=== PATIENT | female | born 1945 | race Native Hawaiian/Other Pacific Islander ===

== ENCOUNTER 2016-04-25 07:46 | Outpatient (CLI) | payer OTHER ==
[~2016-04-25 07:46] MED LIST: AMLO2.5T PO; ANORO ELLIPTA 61 AER IN; D32000 UNIT PO; DOCU100C10 PO; FIORICET/CODEIN1 CAP PO; METOCLOPRAM10 MG PO; OMEPRAZOLE20 M2 OR; OXYB5TAB64 PO; PRINIVIL10 MG PO; SIMV20TA2 PO; ZANTAC 75 PO
[2016-04-25 09:10] LABS: PLATELET COUNT 247 K/uL (152-353)
== END 2016-04-25 23:35 | disposition home or self-care (01) ==
LOC: LABW 07:46
PROVIDERS: Nurse Practitioner
DX: I10 Essential (primary) hypertension (principal); E78.4 Other hyperlipidemia
CPT/HCPCS: 36415; 80053; 80061; 82043; 82570; 85027

== ENCOUNTER 2016-07-10 08:01 | Outpatient (CLI) | payer OTHER ==
[2016-07-10 08:31] LABS: PLATELET COUNT 314 K/uL (152-353)
[2016-07-10 08:45] LABS: POTASSIUM 4.6 mmol/L (3.6-5.2)
== END 2016-07-10 19:04 | disposition home or self-care (01) ==
LOC: LABW 08:01
PROVIDERS: Internal Medicine Nephrology
DX: I12.9 Hypertensive chronic kidney disease with stage 1 through stage 4 chronic kidney disease, or unspecified chronic kidney disease (principal); N18.3 Chronic kidney disease, stage 3 (moderate); E55.9 Vitamin D deficiency, unspecified
CPT/HCPCS: 36415; 80053; 81000; 82306; 82570; 83970; 84100; 84155; 85027

== ENCOUNTER 2016-07-14 01:06 | Emergency (ER) | payer OTHER ==
[~2016-07-14] VITALS: Ht 170.2 cm; Wt 78.9 kg
[2016-07-14 01:10] VITALS: TEMP 99.9
[2016-07-14 02:33] LABS: PLATELET COUNT 282 K/uL (152-353)
[2016-07-14 02:38] LABS: POTASSIUM 4.2 mmol/L (3.6-5.2)
[2016-07-14 03:03] LABS: PARTIAL THROMBOPLASTIN TIME 20.9 SECONDS (24.5-33.6)
[2016-07-14 03:50] VITALS: BP 142/76
== END 2016-07-14 03:50 | disposition home or self-care (01) ==
LOC: ED 01:06
PROVIDERS: Emergency Medicine
DX: R09.1 Pleurisy (principal); I45.81 Long QT syndrome
CPT/HCPCS: 36415; 80053; 82550; 83880; 84484; 85027; 85610; 85730; 93005; 96374; 96375; 99284; J2270; J2405

== ENCOUNTER 2016-07-16 03:15 | Inpatient (IN) | payer OTHER ==
[~2016-07-16] VITALS: Ht 170.2 cm; Wt 77.4 kg
[2016-07-16 03:16] VITALS: BP 148/67; TEMP 98.7
[2016-07-16 03:45] LABS: PLATELET COUNT 225 K/uL (152-353)
[2016-07-16 06:24] VITALS: BP 99/50; TEMP 99.1; Ht 170.2 cm; Wt 77.4 kg
[2016-07-16 08:00] VITALS: BP 101/55; TEMP 98.1
[2016-07-16 08:37] LABS: POTASSIUM 4.3 mmol/L (3.6-5.2)
[2016-07-16 12:00] VITALS: BP 99/53; TEMP 98.3
[2016-07-16 16:00] VITALS: BP 120/60; TEMP 98.2
[2016-07-16 20:00] VITALS: BP 106/40; TEMP 98.6
[2016-07-17] VITALS: BP 98/42; TEMP 98.7
[2016-07-17 04:00] VITALS: BP 133/75; TEMP 97.9
[2016-07-17 08:00] VITALS: BP 118/54; TEMP 97.6
[2016-07-17 10:31] LABS: PLATELET COUNT 256 K/uL (152-353)
[2016-07-17 11:02] LABS: POTASSIUM 3.1 mmol/L (3.6-5.2)
[2016-07-17 12:00] VITALS: BP 119/55; TEMP 98.5
[2016-07-17 16:00] VITALS: BP 123/93; TEMP 98.6
[2016-07-17 20:00] VITALS: BP 115/61; TEMP 98.7
[2016-07-18] VITALS: BP 117/46; TEMP 98.6
[2016-07-18 04:00] VITALS: BP 110/42; TEMP 99.2
[2016-07-18 06:56] LABS: PLATELET COUNT 290 K/uL (152-353)
[2016-07-18 07:13] LABS: POTASSIUM 3.7 mmol/L (3.6-5.2)
[2016-07-18 08:00] VITALS: BP 131/87; TEMP 98.3
[2016-07-18 12:00] VITALS: BP 129/82; TEMP 98.4
[2016-07-18 17:08] VITALS: BP 138/56; TEMP 98.3
[2016-07-18 20:00] VITALS: BP 131/55; TEMP 98.2
[2016-07-19] VITALS: BP 133/50; TEMP 98.8
[2016-07-19 04:00] VITALS: BP 135/57; TEMP 98
[2016-07-19 04:08] LABS: PLATELET COUNT 259 K/uL (152-353)
[2016-07-19 04:38] LABS: POTASSIUM 3.8 mmol/L (3.6-5.2)
[2016-07-19 08:00] VITALS: BP 152/64; TEMP 98.6
[2016-07-19 12:00] VITALS: BP 148/58; TEMP 98.4
[2016-07-19 16:03] VITALS: BP 167/73; TEMP 97.7
== END 2016-07-19 18:05 | disposition home or self-care (01) | DRG 190 ==
LOC: ED 03:15 → MED/SURG 04:30
PROVIDERS: Emergency Medicine; ADMIT Family Medicine
DX: J44.0 Chronic obstructive pulmonary disease with (acute) lower respiratory infection (principal); J18.8 Other pneumonia, unspecified organism; J20.9 Acute bronchitis, unspecified; J44.1 Chronic obstructive pulmonary disease with (acute) exacerbation; I10 Essential (primary) hypertension; I12.9 Hypertensive chronic kidney disease with stage 1 through stage 4 chronic kidney disease, or unspecified chronic kidney disease; N18.3 Chronic kidney disease, stage 3 (moderate); M54.89 Other dorsalgia; R09.1 Pleurisy; I45.81 Long QT syndrome
CPT/HCPCS: 36415; 80053; 82550; 83735; 83880; 84484; 85027; 85610; 85730; 87040; 87070; 87077; 87205; 93005; 94640; 94664; 94668; 94760; 96361; 96365; 96374; 96375; 96376; 99284; J0696; J2270; J2405; J2920; J2930

== ENCOUNTER 2016-08-02 13:52 | Outpatient (CLI) | payer OTHER | END 2016-08-02 15:00 | disposition home or self-care (01) | LOC: CT 13:52 | DX: J01.01 Acute recurrent maxillary sinusitis (principal); Z87.891 Personal history of nicotine dependence ==

== ENCOUNTER 2016-08-08 07:37 | Outpatient (CLI) | payer OTHER ==
[2016-08-08 08:41] LABS: PLATELET COUNT 206 K/uL (152-353)
[2016-08-08 09:02] LABS: POTASSIUM 4.7 mmol/L (3.6-5.2)
== END 2016-08-08 19:09 | disposition home or self-care (01) ==
LOC: LABW 07:37
PROVIDERS: Nurse Practitioner
DX: I10 Essential (primary) hypertension (principal); E78.4 Other hyperlipidemia
CPT/HCPCS: 36415; 80053; 80061; 82043; 82570; 85027

== ENCOUNTER 2017-02-05 07:46 | Outpatient (CLI) | payer OTHER ==
[2017-02-05 08:34] LABS: PLATELET COUNT 283 K/uL (152-353)
== END 2017-02-05 08:50 | disposition home or self-care (01) ==
LOC: LABW 07:46
PROVIDERS: Internal Medicine Nephrology
DX: I12.9 Hypertensive chronic kidney disease with stage 1 through stage 4 chronic kidney disease, or unspecified chronic kidney disease (principal); N18.3 Chronic kidney disease, stage 3 (moderate); E55.9 Vitamin D deficiency, unspecified
CPT/HCPCS: 36415; 80053; 81000; 82306; 82570; 83970; 84100; 84155; 85027

== ENCOUNTER 2017-03-06 07:34 | Outpatient (CLI) | payer OTHER ==
[2017-03-06 07:54] LABS: PLATELET COUNT 294 K/uL (152-353)
[2017-03-06 09:10] LABS: POTASSIUM 3.7 mmol/L (3.6-5.2)
== END 2017-03-06 21:15 | disposition home or self-care (01) ==
LOC: LABW 07:34
PROVIDERS: Internal Medicine Gastroenterology
DX: R10.84 Generalized abdominal pain (principal)
CPT/HCPCS: 36415; 80053; 81000; 85027

== ENCOUNTER 2017-03-09 09:59 | Outpatient (CLI) | payer OTHER | END 2017-03-10 05:17 | disposition home or self-care (01) | LOC: CT 09:59 | DX: J44.9 Chronic obstructive pulmonary disease, unspecified (principal); Z87.891 Personal history of nicotine dependence ==

== ENCOUNTER 2017-07-11 07:42 | Outpatient (CLI) | payer OTHER ==
[2017-07-11 08:43] LABS: PLATELET COUNT 281 K/uL (152-353)
[2017-07-11 08:57] LABS: POTASSIUM 4.2 mmol/L (3.6-5.2)
== END 2017-07-11 21:25 | disposition home or self-care (01) ==
LOC: LABW 07:42
PROVIDERS: Nurse Practitioner
DX: I10 Essential (primary) hypertension (principal); E78.4 Other hyperlipidemia; R60.0 Localized edema; E55.9 Vitamin D deficiency, unspecified
CPT/HCPCS: 36415; 80053; 80061; 82043; 82306; 82570; 83735; 85027

== ENCOUNTER 2017-08-26 21:54 | Emergency (ER) | payer OTHER ==
[~2017-08-26] VITALS: Ht 170.2 cm; Wt 73.7 kg
[2017-08-26 21:53] VITALS: TEMP 99.3
[2017-08-26 22:42] LABS: POTASSIUM 3.7 mmol/L (3.6-5.2)
[2017-08-26 23:09] LABS: PLATELET COUNT 261 K/uL (152-353)
[2017-08-27 03:14] VITALS: BP 138/73
== END 2017-08-27 03:14 | disposition home or self-care (01) ==
LOC: ED 21:54
PROVIDERS: Emergency Medicine
DX: R07.89 Other chest pain (principal); R00.1 Bradycardia, unspecified
CPT/HCPCS: 36415; 80053; 82550; 82553; 84484; 85027; 85379; 93005; 99283

== ENCOUNTER 2017-09-19 07:29 | Outpatient (CLI) | payer OTHER ==
[2017-09-19 07:44] LABS: PLATELET COUNT 264 K/uL (152-353)
[2017-09-19 08:07] LABS: POTASSIUM 4.2 mmol/L (3.6-5.2)
== END 2017-09-19 22:30 | disposition home or self-care (01) ==
LOC: LABW 07:29
PROVIDERS: Internal Medicine Nephrology
DX: I12.9 Hypertensive chronic kidney disease with stage 1 through stage 4 chronic kidney disease, or unspecified chronic kidney disease (principal); N18.3 Chronic kidney disease, stage 3 (moderate); E55.9 Vitamin D deficiency, unspecified
CPT/HCPCS: 36415; 80053; 81000; 82570; 82652; 83970; 84100; 84155; 85027

== ENCOUNTER 2017-12-19 07:41 | Outpatient (CLI) | payer OTHER ==
[2017-12-19 08:13] LABS: PLATELET COUNT 244 K/uL (152-353)
[2017-12-19 08:59] LABS: POTASSIUM 4.7 mmol/L (3.6-5.2)
== END 2017-12-19 19:11 | disposition home or self-care (01) ==
LOC: LABW 07:41
PROVIDERS: Nurse Practitioner
DX: I10 Essential (primary) hypertension (principal); E78.49 Other hyperlipidemia; R60.0 Localized edema; G47.11 Idiopathic hypersomnia with long sleep time; M79.651 Pain in right thigh; E55.9 Vitamin D deficiency, unspecified
CPT/HCPCS: 36415; 80053; 80061; 82043; 82306; 82570; 83735; 85027

== ENCOUNTER 2018-02-19 15:08 | Observation (INO) | payer OTHER ==
[~2018-02-19] VITALS: Ht 170.2 cm; Wt 76.4 kg
[2018-02-19 15:25] VITALS: BP 146/56; TEMP 98.2
[2018-02-19 16:34] LABS: POTASSIUM 4.3 mmol/L (3.6-5.2)
[2018-02-19 16:38] LABS: PLATELET COUNT 289 K/uL (152-353)
[2018-02-19 17:14] LABS: PARTIAL THROMBOPLASTIN TIME 24.4 SECONDS (24.5-33.6)
[2018-02-19 20:00] VITALS: BP 134/60; TEMP 98.1
[2018-02-19 22:39] VITALS: BP 134/60; TEMP 98.1; Ht 170.2 cm; Wt 76.4 kg
[2018-02-20] VITALS: BP 105/52; TEMP 98.3
[2018-02-20 04:00] VITALS: BP 109/67; TEMP 97.8
[2018-02-20 08:00] VITALS: BP 120/74; TEMP 98.1
[2018-02-20 12:00] VITALS: BP 123/56; TEMP 98.3
[2018-02-20 16:00] VITALS: BP 123/57; TEMP 98.6
== END 2018-02-20 16:15 | disposition home or self-care (01) ==
LOC: ED 15:08 → MED/SURG 17:17
PROVIDERS: Family Medicine; ADMIT Emergency Medicine
DX: G45.9 Transient cerebral ischemic attack, unspecified (principal); R47.81 Slurred speech; R09.02 Hypoxemia; I10 Essential (primary) hypertension; E78.49 Other hyperlipidemia; J44.9 Chronic obstructive pulmonary disease, unspecified; I12.9 Hypertensive chronic kidney disease with stage 1 through stage 4 chronic kidney disease, or unspecified chronic kidney disease; N18.3 Chronic kidney disease, stage 3 (moderate)
CPT/HCPCS: 36415; 80053; 81000; 85027; 85610; 85730; 94760; 99220; 99283; G0378; J1650

== ENCOUNTER 2018-02-28 09:52 | Outpatient (CLI) | payer OTHER | END 2018-02-28 20:34 | disposition home or self-care (01) | LOC: RESP 09:52 | DX: G44.89 Other headache syndrome (principal); G45.0 Vertebro-basilar artery syndrome; R26.89 Other abnormalities of gait and mobility | CPT/HCPCS: 93306; A9576 ==

== ENCOUNTER 2018-03-14 07:35 | Outpatient (CLI) | payer OTHER ==
[2018-03-14 08:34] LABS: PLATELET COUNT 271 K/uL (152-353)
[2018-03-14 08:40] LABS: POTASSIUM 4.4 mmol/L (3.6-5.2)
== END 2018-03-14 19:07 | disposition home or self-care (01) ==
LOC: LABW 07:35
PROVIDERS: Internal Medicine Nephrology
DX: N18.3 Chronic kidney disease, stage 3 (moderate) (principal); E55.9 Vitamin D deficiency, unspecified; I10 Essential (primary) hypertension
CPT/HCPCS: 36415; 80053; 81000; 82570; 82652; 83970; 84100; 84155; 85027

== ENCOUNTER 2018-07-17 07:21 | Outpatient (CLI) | payer OTHER ==
[2018-07-17 08:02] LABS: POTASSIUM 3.7 mmol/L (3.6-5.2)
[2018-07-17 08:23] LABS: PLATELET COUNT 362 K/uL (152-353)
== END 2018-07-17 19:06 | disposition home or self-care (01) ==
LOC: LAB 07:21
PROVIDERS: Nurse Practitioner
DX: R10.84 Generalized abdominal pain (principal)
CPT/HCPCS: 36415; 80053; 82150; 83690; 85027

== ENCOUNTER 2018-07-23 08:22 | Outpatient (CLI) | payer OTHER | END 2018-07-23 19:18 | disposition home or self-care (01) | LOC: CT 08:22 | DX: R10.84 Generalized abdominal pain (principal) ==

== ENCOUNTER 2018-09-02 07:27 | Outpatient (CLI) | payer OTHER ==
[2018-09-02 08:24] LABS: POTASSIUM 3.6 mmol/L (3.6-5.2)
[2018-09-02 08:38] LABS: PLATELET COUNT 232 K/uL (152-353)
== END 2018-09-02 23:33 | disposition home or self-care (01) ==
LOC: LABW 07:27
PROVIDERS: Internal Medicine Nephrology
DX: J45.909 Unspecified asthma, uncomplicated (principal); J44.9 Chronic obstructive pulmonary disease, unspecified; K21.9 Gastro-esophageal reflux disease without esophagitis; N32.81 Overactive bladder; Z79.899 Other long term (current) drug therapy
CPT/HCPCS: 36415; 80053; 80061; 81000; 82306; 82570; 83970; 84100; 84155; 85027

== ENCOUNTER 2018-09-11 07:51 | Outpatient (CLI) | payer OTHER | END 2018-09-11 22:30 | disposition home or self-care (01) | LOC: CT 07:51 | DX: R91.1 Solitary pulmonary nodule (principal) ==

== ENCOUNTER 2018-11-20 11:15 | Day surgery (SDC) | payer OTHER ==
[2018-11-20 12:34] LABS: PLATELET COUNT 245 K/uL (152-353)
[2018-11-20 12:48] LABS: POTASSIUM 3.9 mmol/L (3.6-5.2)
== END 2018-11-20 17:23 | disposition home or self-care (01) ==
LOC: OR 11:15
PROVIDERS: Internal Medicine Gastroenterology
PROC: 0DB38ZZ Excision of Lower Esophagus, Via Natural or Artificial Opening Endoscopic (ICD-10-PCS; principal; 2018-11-20)
PROC: 0DB68ZZ Excision of Stomach, Via Natural or Artificial Opening Endoscopic (ICD-10-PCS; 2018-11-20)
DX: K22.70 Barrett's esophagus without dysplasia (principal); Z98.890 Other specified postprocedural states; K29.50 Unspecified chronic gastritis without bleeding; R63.4 Abnormal weight loss; K21.0 Gastro-esophageal reflux disease with esophagitis
CPT/HCPCS: 80053; 85027; 93005; J2001; J2250; J2405; J2704

== ENCOUNTER 2018-12-30 10:12 | Outpatient (CLI) | payer OTHER | END 2018-12-30 20:23 | disposition home or self-care (01) | LOC: NM 10:12 | DX: R63.4 Abnormal weight loss (principal) | CPT/HCPCS: A9541 ==

== ENCOUNTER 2019-01-27 11:58 | Emergency (ER) | payer OTHER ==
[~2019-01-27] VITALS: Ht 170.2 cm; Wt 64.4 kg
[2019-01-27 12:12] VITALS: TEMP 97.7
[2019-01-27 15:00] VITALS: BP 112/60
== END 2019-01-27 15:16 | disposition home or self-care (01) ==
LOC: ED 11:58
DX: J06.9 Acute upper respiratory infection, unspecified (principal); J44.1 Chronic obstructive pulmonary disease with (acute) exacerbation; F17.290 Nicotine dependence, other tobacco product, uncomplicated
CPT/HCPCS: 87502; 87651; 94664; 99283

== ENCOUNTER 2019-02-15 09:08 | Emergency (ER) | payer OTHER ==
[~2019-02-15] VITALS: Ht 170.2 cm; Wt 60.8 kg
[2019-02-15 09:20] VITALS: TEMP 97.7
[2019-02-15 10:10] LABS: PLATELET COUNT 241 K/uL (152-353)
[2019-02-15 10:29] LABS: POTASSIUM 3.6 mmol/L (3.6-5.2)
[2019-02-15 10:54] VITALS: BP 142/60
== END 2019-02-15 10:54 | disposition home or self-care (01) ==
LOC: ED 09:08
PROVIDERS: Emergency Medicine
DX: J44.9 Chronic obstructive pulmonary disease, unspecified (principal); J40 Bronchitis, not specified as acute or chronic
CPT/HCPCS: 80053; 85027; 87070; 87205; 87502; 93005; 94664; 96372; 99283; J2930

== ENCOUNTER 2019-02-21 07:04 | Outpatient (CLI) | payer OTHER | END 2019-02-21 19:37 | disposition home or self-care (01) | LOC: RAD 07:04 | DX: J18.8 Other pneumonia, unspecified organism (principal) ==

== ENCOUNTER 2019-03-24 11:16 | Outpatient (CLI) | payer OTHER | END 2019-03-24 20:12 | disposition home or self-care (01) | LOC: RAD 11:16 | DX: J18.9 Pneumonia, unspecified organism (principal) ==

== ENCOUNTER 2019-05-05 07:53 | Outpatient (CLI) | payer OTHER ==
[2019-05-05 08:23] LABS: PLATELET COUNT 234 K/uL (152-353)
== END 2019-05-05 19:08 | disposition home or self-care (01) ==
LOC: LABW 07:53
PROVIDERS: Internal Medicine Nephrology
DX: J45.909 Unspecified asthma, uncomplicated (principal); J44.9 Chronic obstructive pulmonary disease, unspecified; K21.9 Gastro-esophageal reflux disease without esophagitis; N32.81 Overactive bladder; R63.4 Abnormal weight loss; N18.3 Chronic kidney disease, stage 3 (moderate); D64.9 Anemia, unspecified; E53.8 Deficiency of other specified B group vitamins; I10 Essential (primary) hypertension
CPT/HCPCS: 36415; 80053; 80061; 81000; 82306; 82570; 82607; 82728; 82746; 83540; 83550; 83970; 84100; 84155; 84439; 84443; 85027

== ENCOUNTER 2019-05-22 09:12 | Outpatient (CLI) | payer OTHER | END 2019-05-22 18:59 | disposition home or self-care (01) | LOC: MAMMO 09:12 | DX: Z12.31 Encounter for screening mammogram for malignant neoplasm of breast (principal) ==

== ENCOUNTER 2019-06-09 08:51 | Outpatient (CLI) | payer OTHER | END 2019-06-09 19:14 | disposition home or self-care (01) | LOC: MAMMO 08:51 | DX: R92.8 Other abnormal and inconclusive findings on diagnostic imaging of breast (principal) ==

== ENCOUNTER 2019-10-20 07:59 | Outpatient (CLI) | payer OTHER ==
[2019-10-20 09:37] LABS: POTASSIUM 4.2 mmol/L (3.6-5.2)
[2019-10-20 09:53] LABS: PLATELET COUNT 225 K/uL (152-353)
== END 2019-10-20 20:25 | disposition home or self-care (01) ==
LOC: LABW 07:59
PROVIDERS: Internal Medicine Nephrology
DX: J44.9 Chronic obstructive pulmonary disease, unspecified (principal); K21.9 Gastro-esophageal reflux disease without esophagitis; N32.81 Overactive bladder; R63.4 Abnormal weight loss; N18.3 Chronic kidney disease, stage 3 (moderate); D64.9 Anemia, unspecified; E53.8 Deficiency of other specified B group vitamins
CPT/HCPCS: 36415; 80053; 81000; 82306; 82570; 82607; 82728; 82746; 83540; 83550; 83970; 84100; 84155; 85027

== ENCOUNTER 2020-02-10 08:12 | Outpatient (CLI) | payer OTHER ==
[2020-02-10 08:50] LABS: PLATELET COUNT 246 K/uL (152-353)
[2020-02-10 09:09] LABS: POTASSIUM 4.6 mmol/L (3.6-5.2)
== END 2020-02-10 19:45 | disposition home or self-care (01) ==
LOC: LABW 08:12
PROVIDERS: ATTEND Family Medicine
DX: I10 Essential (primary) hypertension (principal); E78.2 Mixed hyperlipidemia; R60.0 Localized edema; E55.9 Vitamin D deficiency, unspecified
CPT/HCPCS: 36415; 80053; 80061; 82043; 82306; 82570; 83735; 85027

== ENCOUNTER 2020-03-17 09:31 | Outpatient (CLI) | payer OTHER ==
[2020-03-17 10:08] LABS: PLATELET COUNT 297 K/uL (152-353)
[2020-03-17 10:22] LABS: POTASSIUM 4.7 mmol/L (3.6-5.2)
== END 2020-03-17 19:34 | disposition home or self-care (01) ==
LOC: LABW 09:31
PROVIDERS: ATTEND Nurse Practitioner
DX: D64.89 Other specified anemias (principal); L98.8 Other specified disorders of the skin and subcutaneous tissue; I10 Essential (primary) hypertension; H53.129 Transient visual loss, unspecified eye; G50.1 Atypical facial pain; E55.9 Vitamin D deficiency, unspecified
CPT/HCPCS: 36415; 80053; 80061; 82306; 85027; 85652; 86038

== ENCOUNTER 2020-03-23 09:39 | Outpatient (CLI) | payer OTHER | END 2020-03-23 23:17 | disposition home or self-care (01) | LOC: MRI 09:39 | PROVIDERS: ATTEND Chiropractor | DX: G50.1 Atypical facial pain (principal); H53.129 Transient visual loss, unspecified eye ==

== ENCOUNTER 2020-03-30 11:09 | Outpatient (CLI) | payer OTHER | END 2020-03-30 21:33 | disposition home or self-care (01) | LOC: CT 11:09 | PROVIDERS: ATTEND Physician Assistant | DX: Z87.891 Personal history of nicotine dependence (principal) | CPT/HCPCS: G0297-TC ==

== ENCOUNTER 2020-04-26 10:18 | Emergency (ER) | payer OTHER ==
[~2020-04-26] VITALS: Ht 170.2 cm; Wt 63.5 kg
[2020-04-26 11:10] LABS: PLATELET COUNT 288 K/uL (152-353)
[2020-04-26 11:13] LABS: POTASSIUM 4.3 mmol/L (3.6-5.2)
[2020-04-26 12:05] VITALS: BP 124/54; TEMP 98
== END 2020-04-26 12:05 | disposition home or self-care (01) ==
LOC: ED 10:18
PROVIDERS: Emergency Medicine Emergency Medical Services
DX: R10.84 Generalized abdominal pain (principal)
CPT/HCPCS: 36415; 80053; 81000; 83690; 85027; 96360; 99284

== ENCOUNTER 2020-05-03 08:02 | Outpatient (CLI) | payer OTHER ==
[2020-05-03 08:16] LABS: PLATELET COUNT 258 K/uL (152-353)
== END 2020-05-03 22:47 | disposition home or self-care (01) ==
LOC: LABW 08:02
PROVIDERS: ATTEND Nurse Practitioner
DX: D64.89 Other specified anemias (principal)
CPT/HCPCS: 36415; 85027

== ENCOUNTER 2020-05-05 10:47 | Day surgery (SDC) | payer OTHER ==
[~2020-05-05] VITALS: Ht 30.5 cm; Wt 0.5 kg
== END 2020-05-05 14:22 | disposition home or self-care (01) ==
LOC: OR 10:47
PROVIDERS: ATTEND Internal Medicine Gastroenterology
PROC: 0DB68ZZ Excision of Stomach, Via Natural or Artificial Opening Endoscopic (ICD-10-PCS; principal; 2020-05-05)
PROC: 0DB38ZZ Excision of Lower Esophagus, Via Natural or Artificial Opening Endoscopic (ICD-10-PCS; 2020-05-05)
PROC: 0DB88ZZ Excision of Small Intestine, Via Natural or Artificial Opening Endoscopic (ICD-10-PCS; 2020-05-05)
DX: K22.70 Barrett's esophagus without dysplasia (principal); K29.50 Unspecified chronic gastritis without bleeding; D50.8 Other iron deficiency anemias; K21.00 Gastro-esophageal reflux disease with esophagitis, without bleeding; Z98.890 Other specified postprocedural states; Z20.828 Contact with and (suspected) exposure to other viral communicable diseases
CPT/HCPCS: 87635; J2001; J2704; U0003

== ENCOUNTER 2020-08-09 09:07 | Outpatient (CLI) | payer OTHER ==
[2020-08-09 09:27] LABS: PLATELET COUNT 252 K/uL (152-353)
[2020-08-09 09:37] LABS: POTASSIUM 4.9 mmol/L (3.6-5.2)
== END 2020-08-09 21:45 | disposition home or self-care (01) ==
LOC: LAB 09:07
PROVIDERS: ATTEND Internal Medicine Nephrology
DX: J45.909 Unspecified asthma, uncomplicated (principal); J44.9 Chronic obstructive pulmonary disease, unspecified; K21.9 Gastro-esophageal reflux disease without esophagitis; N32.81 Overactive bladder; R63.4 Abnormal weight loss; N18.30 Chronic kidney disease, stage 3 unspecified; D64.9 Anemia, unspecified
CPT/HCPCS: 36415; 80053; 81000; 82306; 82570; 82607; 82728; 82746; 83540; 83550; 83970; 84100; 84155; 85027

== ENCOUNTER 2020-12-22 07:54 | Outpatient (CLI) | payer OTHER ==
[2020-12-22 08:28] LABS: POTASSIUM 4.7 mmol/L (3.6-5.2)
[2020-12-22 08:37] LABS: PLATELET COUNT 278 K/uL (152-353)
== END 2020-12-22 21:49 | disposition home or self-care (01) ==
LOC: LABW 07:54
PROVIDERS: ATTEND Nurse Practitioner
DX: I10 Essential (primary) hypertension (principal); E78.2 Mixed hyperlipidemia; K21.00 Gastro-esophageal reflux disease with esophagitis, without bleeding; E55.9 Vitamin D deficiency, unspecified
CPT/HCPCS: 36415; 80053; 80061; 82306; 83735; 85027

== ENCOUNTER 2020-12-27 07:51 | Outpatient (CLI) | payer OTHER | END 2020-12-27 19:00 | disposition home or self-care (01) | LOC: LABW 07:51 | PROVIDERS: ATTEND Nurse Practitioner | DX: E83.41 Hypermagnesemia (principal) | CPT/HCPCS: 36415; 83735 ==

== ENCOUNTER 2021-02-07 08:10 | Outpatient (CLI) | payer OTHER ==
[2021-02-07 08:28] LABS: PLATELET COUNT 259 K/uL (152-353)
[2021-02-07 09:02] LABS: POTASSIUM 4.3 mmol/L (3.6-5.2)
== END 2021-02-07 18:57 | disposition home or self-care (01) ==
LOC: LABW 08:10
PROVIDERS: ATTEND Internal Medicine Nephrology
DX: N18.32 Chronic kidney disease, stage 3b (principal); D64.9 Anemia, unspecified; Z79.899 Other long term (current) drug therapy
CPT/HCPCS: 36415; 80053; 80061; 81000; 82306; 82570; 82728; 83540; 83550; 83970; 84100; 84155; 85027

== ENCOUNTER 2021-06-06 08:24 | Outpatient (CLI) | payer OTHER ==
[2021-06-06 08:46] LABS: PLATELET COUNT 263 K/uL (152-353)
[2021-06-06 09:12] LABS: POTASSIUM 4.2 mmol/L (3.6-5.2)
== END 2021-06-06 19:07 | disposition home or self-care (01) ==
LOC: LABW 08:24
PROVIDERS: ATTEND Internal Medicine Nephrology
DX: I12.9 Hypertensive chronic kidney disease with stage 1 through stage 4 chronic kidney disease, or unspecified chronic kidney disease (principal); N18.32 Chronic kidney disease, stage 3b; D51.8 Other vitamin B12 deficiency anemias; D64.89 Other specified anemias; R94.6 Abnormal results of thyroid function studies; E78.49 Other hyperlipidemia; N25.81 Secondary hyperparathyroidism of renal origin; E55.9 Vitamin D deficiency, unspecified; E88.9 Metabolic disorder, unspecified; Z79.899 Other long term (current) drug therapy
CPT/HCPCS: 36415; 80053; 80061; 81000; 82306; 82570; 82607; 82728; 82746; 83036; 83540; 83550; 83970; 84100; 84156; 84439; 85027

== ENCOUNTER 2021-12-05 07:49 | Outpatient (CLI) | payer OTHER ==
[2021-12-05 08:08] LABS: PLATELET COUNT 243 K/uL (152-353)
[2021-12-05 08:18] LABS: POTASSIUM 3.8 mmol/L (3.6-5.2)
== END 2021-12-05 20:36 | disposition home or self-care (01) ==
LOC: LABW 07:49
PROVIDERS: ATTEND Nurse Practitioner
DX: I10 Essential (primary) hypertension (principal); E78.2 Mixed hyperlipidemia; K21.00 Gastro-esophageal reflux disease with esophagitis, without bleeding; R60.0 Localized edema; E55.9 Vitamin D deficiency, unspecified
CPT/HCPCS: 36415; 80053; 80061; 81002; 82043; 82306; 83735; 85027

== ENCOUNTER → 2022-01-03 | Outpatient (CLI) | payer OTHER ==
[2022-01-03 12:38] LABS: PLATELET COUNT 240 K/uL (152-353)
[2022-01-03 12:53] LABS: POTASSIUM 4.2 mmol/L (3.6-5.2)
== END ==
LOC: RAD 11:24
PROVIDERS: ATTEND Nurse Practitioner
DX: R53.83 Other fatigue (principal); D64.9 Anemia, unspecified; N18.30 Chronic kidney disease, stage 3 unspecified; I12.9 Hypertensive chronic kidney disease with stage 1 through stage 4 chronic kidney disease, or unspecified chronic kidney disease; D50.8 Other iron deficiency anemias; J44.9 Chronic obstructive pulmonary disease, unspecified; R63.4 Abnormal weight loss
CPT/HCPCS: 36415; 80053; 80061; 82607; 82728; 82746; 83540; 83550; 83735; 84436; 84443; 84479; 85027; 85652; 93005

== ENCOUNTER 2022-02-28 07:32 | Outpatient (CLI) | payer OTHER ==
[2022-02-28 08:06] LABS: PLATELET COUNT 231 K/uL (152-353)
== END 2022-02-28 22:17 | disposition home or self-care (01) ==
LOC: LABW 07:32
PROVIDERS: ATTEND Nurse Practitioner
DX: I10 Essential (primary) hypertension (principal); E78.2 Mixed hyperlipidemia; K21.00 Gastro-esophageal reflux disease with esophagitis, without bleeding; R60.0 Localized edema; R94.4 Abnormal results of kidney function studies; E55.9 Vitamin D deficiency, unspecified
CPT/HCPCS: 36415; 80053; 80061; 82306; 83735; 85027

== ENCOUNTER 2022-04-05 10:49 | Outpatient (CLI) | payer OTHER | END 2022-04-05 19:09 | disposition home or self-care (01) | LOC: RAD 10:49 | PROVIDERS: ATTEND Nurse Practitioner | DX: M25.521 Pain in right elbow (principal); M25.551 Pain in right hip; S76.811A Strain of other specified muscles, fascia and tendons at thigh level, right thigh, initial encounter; Y92.89 Other specified places as the place of occurrence of the external cause ==

== ENCOUNTER 2022-05-23 10:44 | Emergency (ER) | payer OTHER ==
[~2022-05-23] VITALS: Ht 170.2 cm; Wt 64.4 kg
[2022-05-23 10:45] VITALS: BP 132/59; TEMP 98.2
[2022-05-23 11:19] LABS: PLATELET COUNT 244 K/uL (152-353)
== END 2022-05-23 12:22 | disposition home or self-care (01) ==
LOC: ED 10:44
PROVIDERS: Emergency Medicine
DX: N39.0 Urinary tract infection, site not specified (principal); R42 Dizziness and giddiness
CPT/HCPCS: 80053; 81000; 84484; 85027; 87088; 93005; 96372; 99283; J0696

== ENCOUNTER 2022-06-14 20:16 | Observation (INO) | payer OTHER ==
[~2022-06-14] VITALS: Ht 170.2 cm; Wt 61.2 kg
[2022-06-14 20:16] VITALS: BP 127/60; TEMP 99.6
[~2022-06-14 20:16] MED LIST changes: +LISI10TA11 PO; -PRINIVIL10 MG PO
[2022-06-14 21:03] LABS: PLATELET COUNT 254 K/uL (152-353)
[2022-06-14 21:13] LABS: POTASSIUM 3.8 mmol/L (3.6-5.2)
[2022-06-14 22:00] VITALS: BP 137/53
[2022-06-14 22:05] VITALS: BP 132/51
[2022-06-14 23:18] VITALS: TEMP 99.2
[2022-06-14 23:30] VITALS: BP 116/38
[2022-06-14 23:48] VITALS: TEMP 99.6
[2022-06-15 01:03] VITALS: BP 122/52; TEMP 100.3; Ht 170.2 cm; Wt 61.2 kg
[2022-06-15 04:00] VITALS: BP 107/42; TEMP 98.7
[2022-06-15 04:04] LABS: POTASSIUM 4.3 mmol/L (3.6-5.2)
[2022-06-15 04:16] LABS: PLATELET COUNT 199 K/uL (152-353)
[2022-06-15 08:00] VITALS: BP 117/47; TEMP 99.1
[2022-06-15] MEDS ORDERED: AMLODIPINE BESYLATE PO (11:00)
[2022-06-15] MEDS ORDERED: FAMOTIDINE40 MG PO (11:01)
[2022-06-15] MEDS ORDERED: OXYB5TAB56 PO (11:02)
[2022-06-15] MEDS ORDERED: FLAXSEED PO (11:04)
[2022-06-15] MEDS ORDERED: FOLATE400 MCG PO (11:04)
[2022-06-15] MEDS ORDERED: VITAMIN C1000 MG PO (11:05)
[2022-06-15] MEDS ORDERED: FLUC150T PO (11:12)
[2022-06-15] MEDS ORDERED: 904272561 PO (11:12)
[2022-06-15] MEDS ORDERED: MUPI2OIN2 TOP (11:13)
[2022-06-15 12:00] VITALS: BP 107/54; TEMP 99
[2022-06-15 16:00] VITALS: BP 106/45; TEMP 98.5
[2022-06-15 20:00] VITALS: BP 105/40; TEMP 98.5
[2022-06-16] VITALS: BP 104/41; TEMP 98.7
[2022-06-16 04:00] VITALS: BP 119/37; TEMP 98.8
[2022-06-16 04:15] LABS: PLATELET COUNT 177 K/uL (152-353)
[2022-06-16 05:44] LABS: POTASSIUM 3.8 mmol/L (3.6-5.2)
[2022-06-16 08:00] VITALS: BP 120/60; TEMP 98.1
[2022-06-16 12:00] VITALS: BP 117/60; TEMP 98.7
[2022-06-16 16:00] VITALS: BP 123/60; TEMP 98.1
[2022-06-16] MEDS ORDERED: CEFD300C2 PO (17:02)
[2022-06-16] MEDS ORDERED: ALBU90AE13 INH (17:02)
[2022-06-16] MEDS ORDERED: FERROUS SULF325 M1 PO (17:03)
== END 2022-06-16 17:46 | disposition home or self-care (01) ==
LOC: ED 20:16 → MED/SURG 23:48
PROVIDERS: ADMIT Emergency Medicine Emergency Medical Services; ATTEND Internal Medicine
DX: J44.1 Chronic obstructive pulmonary disease with (acute) exacerbation (principal); Z87.891 Personal history of nicotine dependence; J18.9 Pneumonia, unspecified organism; R07.89 Other chest pain; D64.9 Anemia, unspecified; Z09 Encounter for follow-up examination after completed treatment for conditions other than malignant neoplasm; Z79.899 Other long term (current) drug therapy
CPT/HCPCS: 36415; 80048; 80053; 81002; 82150; 82550; 82728; 83540; 83690; 83735; 83970; 84443; 84484; 85027; 85379; 87040; 87077; 87185; 87205; 87502; 87635; 93005; 94664; 94760; 96361; 96365; 96367; 96375; 99221; 99284; G0378; J0456; J0696; J2270; J2405; J3490; Q9963; U0003

== ENCOUNTER 2022-06-19 08:03 | Outpatient (CLI) | payer OTHER ==
[~2022-06-19 08:03] MED LIST changes: +904272561 PO; +ALBU90AE13 INH; +AMLODIPINE BESYLATE PO; +CEFD300C2 PO; +FAMOTIDINE40 MG PO; +FERROUS SULF325 M1 PO; +FLAXSEED PO; +FLUC150T PO; +FOLATE400 MCG PO; +MUPI2OIN2 TOP; +OXYB5TAB56 PO; +VITAMIN C1000 MG PO
[2022-06-19 08:57] LABS: PLATELET COUNT 304 K/uL (152-353)
[2022-06-19 09:17] LABS: POTASSIUM 5.1 mmol/L (3.6-5.2)
== END 2022-06-19 21:04 | disposition home or self-care (01) ==
LOC: LABW 08:03
PROVIDERS: ATTEND Nurse Practitioner
DX: I10 Essential (primary) hypertension (principal); E78.2 Mixed hyperlipidemia; E55.9 Vitamin D deficiency, unspecified; R53.83 Other fatigue; D64.89 Other specified anemias; K21.00 Gastro-esophageal reflux disease with esophagitis, without bleeding; D50.8 Other iron deficiency anemias; R63.4 Abnormal weight loss; Z79.899 Other long term (current) drug therapy
CPT/HCPCS: 36415; 80053; 80061; 82306; 83735; 84436; 84443; 84479; 85027

== ENCOUNTER → 2022-06-22 | Emergency (ER) | payer OTHER ==
[~2022-06-22] VITALS: Ht 170.2 cm; Wt 61.2 kg
[2022-06-22 09:38] VITALS: BP 137/57; TEMP 97.7
== END ==
LOC: ED 09:30
DX: M79.621 Pain in right upper arm (principal); F41.8 Other specified anxiety disorders
CPT/HCPCS: 99282

== ENCOUNTER 2022-07-17 07:48 | Outpatient (CLI) | payer OTHER ==
[2022-07-17 08:02] LABS: PLATELET COUNT 259 K/uL (152-353)
[2022-07-17 08:24] LABS: POTASSIUM 4.7 mmol/L (3.6-5.2)
== END 2022-07-17 20:02 | disposition home or self-care (01) ==
LOC: LABW 07:48
PROVIDERS: ATTEND Nurse Practitioner
DX: I10 Essential (primary) hypertension (principal); E78.2 Mixed hyperlipidemia; R53.83 Other fatigue; K21.00 Gastro-esophageal reflux disease with esophagitis, without bleeding; D64.89 Other specified anemias; D50.8 Other iron deficiency anemias; R63.4 Abnormal weight loss
CPT/HCPCS: 36415; 80053; 84436; 84443; 84479; 85027

== ENCOUNTER 2022-09-06 07:58 | Outpatient (CLI) | payer OTHER ==
[2022-09-06 08:18] LABS: PLATELET COUNT 237 K/uL (152-353)
== END 2022-09-06 18:58 | disposition home or self-care (01) ==
LOC: LABW 07:58
PROVIDERS: ATTEND Nurse Practitioner
DX: D50.8 Other iron deficiency anemias (principal); D64.89 Other specified anemias; E78.2 Mixed hyperlipidemia
CPT/HCPCS: 36415; 82728; 83540; 83550; 85027